=== PATIENT | male | born 1980 | race Caucasian/White ===

== ENCOUNTER 2020-09-18 04:43 | Emergency (ER) | payer SELFPAY ==
[2020-09-18] MEDS ORDERED: SODIUM CHLORIDE 0.9% 500 ML INFUS.BAG IV ONE (05:20)
[2020-09-18 05:55] LABS: BASO % 0.4 % (0-2.0); EOS % 0.2 % (0-4.5); HEMOGLOBIN 15.3 GM/dL (11.7-16.9); LYMPH % 12.5 % (8-40); MCH 35.3 pg (25.7-33.7); MCHC 34.8 g/dl (32.0-35.9); MEAN CELL VOLUME 101.3 fl (80-96); MEAN PLT VOLUME 8.1 fl (7.5-11.1); MONO % 14.7 % (3.8-10.2); NEUT % 72.2 % (42.8-82.8); PLATELET COUNT 114 K/MM3 (134-434); RBC 4.35 M/mm3 (4.00-5.60); RDW 13.2 % (11.9-15.9); WHITE BLOOD COUNT 6.8 K/mm3 (4.0-10.0)
[2020-09-18 06:26] VITALS: BP 132/83; PULSE 99; TEMP 98.3; BMI 28.5
[2020-09-18 06:33] LABS: ALBUMIN 4.4 g/dl (3.4-5.0); BLOOD UREA NITROGEN 11.2 mg/dL (7-18); CALCIUM 9.5 mg/dL (8.5-10.1)
[2020-09-18 06:37] LABS: CREATININE 0.8 mg/dL (0.55-1.3)
== END 2020-09-18 07:00 | disposition left against medical advice (07) ==
LOC: JER 04:43
DX: R00.2 Palpitations (principal)
CPT/HCPCS: 36415; 80053; 82962; 84484; 85025; 93005; 93010; 99284-25